=== PATIENT | female | born 1985 | race Caucasian/White ===

== ENCOUNTER 2016-12-22 18:00 | Emergency (ER) | payer OTHER ==
[2016-12-22 18:18] LABS: PH,URINE 5.5 (4.5-8); URINE APPEARANCE Clear; URINE BILIRUBIN Negative (NEGATIVE); URINE BLOOD Negative (NEGATIVE); URINE GLUCOSE (UA) Negative (NEGATIVE); URINE KETONE Negative (NEGATIVE); URINE LEUK ESTERASE Negative (NEGATIVE); URINE NITRITE Negative (NEGATIVE); URINE PROTEIN Negative (NEGATIVE); URINE UROBILINOGEN 0.2 E.U/dl (0.2-1.0)
[2016-12-22 18:21] LABS: URINE COLOR YELLOW
[2016-12-22 18:22] VITALS: BP 117/74; PULSE 101; TEMP 99.6; BMI 20.5
--- NOTE | 2016-12-22 18:37 | PDOC ---
History of Present Illness - General History Source: Patient Exam Limitations: No Limitations <Rubén Singh - Last Filed: 12/22/16 18:38> - History of Present Illness Initial Comments: 12/22/16 18:51 Patient is a 31 year old female with no significant medical hx who is presenting to the ED for flu-like symptoms and cough for five days. Patient complains of fever, chills, sore throat, and productive cough. Today the patient measured her temperature at 102. The patient came to the ED today for having frequent cough with associated chest pain. She reports coughing up clear sputum. The patient denies nausea, vomiting, diarrhea, and difficulty with urination. NKDA. <Jo-Ann Bell - Last Filed: 12/22/16 18:56> - General Chief Complaint: Respiratory Stated Complaint: COUGH, SORE THROAT Time Seen by Provider: 12/22/16 18:22 Past History - Past Medical History Psychiatric Problems: Yes (DEPRESSION, ANXIETY, INSOMNIOA) - Psycho/Social/Smoking Cessation Hx Anxiety: Yes Suicidal Ideation: No Smoking History: Current some day smoker Have you smoked in the past 12 months: Yes Number of Cigarettes Smoked Daily: 5 Information on smoking cessation initiated: Yes 'Breaking Loose' booklet given: 12/22/16 Hx Alcohol Use: Yes (occasional) Drug/Substance Use Hx: No Substance Use Type: None <Rubén Singh - Last Filed: 12/22/16 18:38> <Jo-Ann Bell - Last Filed: 12/22/16 18:56> - Past Medical History Allergies/Adverse Reactions: Allergies Allergy/AdvReac Type Severity Reaction Status Date / Time No Known Allergies Allergy Verified 12/22/16 18:06 Home Medications: Ambulatory Orders Albuterol Sulfate Inhaler - [Ventolin HFA Inhaler -] 1 - 2 inh PO Q4H PRN #1 inhaler 12/22/16 Alprazolam 1 mg PO ASDIR PRN 12/22/16 Azithromycin 250 mg PO DAILY #6 tablet 12/22/16 Clonazepam [Klonopin] 1 mg PO ASDIR PRN 12/22/16 Ibuprofen [Motrin -] 400 mg PO ASDIR PRN 12/22/16 Norethindrone-E.estradiol-Iron [Microgestin Fe 1-20 Tablet] 1 each PO ASDIR Review of Systems - Review of Systems Comments:: 12/22/16 18:53 GENERAL/CONSTITUTIONAL: Fever and chills. No weakness. HEAD, EYES, EARS, NOSE AND THROAT: Sore throat. No change in vision. No ear pain or discharge. CARDIOVASCULAR: Chest pain associated with cough. No shortness of breath. RESPIRATORY: Productive cough. No wheezing or hemoptysis. GASTROINTESTINAL: No nausea, vomiting, diarrhea or constipation. GENITOURINARY: No dysuria, frequency, or change in urination. MUSCULOSKELETAL: No joint or muscle swelling or pain. No neck or back pain. SKIN: No rash NEUROLOGIC: No headache, vertigo, loss of consciousness, or change in strength/ sensation. <Jo-Ann Bell - Last Filed: 12/22/16 18:56> *Physical Exam - Vital Signs Last Vital Signs Temp Pulse Resp BP Pulse Ox 99.6 F 101 H 18 117/74 98 12/22/16 18:00 12/22/16 18:00 12/22/16 18:00 12/22/16 18:00 12/22/16 18:00 <Rubén Singh - Last Filed: 12/22/16 18:38> - Vital Signs Last Vital Signs Temp Pulse Resp BP Pulse Ox 99.6 F 101 H 18 117/74 98 12/22/16 18:00 12/22/16 18:00 12/22/16 18:00 12/22/16 18:00 12/22/16 18:00 - Physical Exam Comments: 12/22/16 18:55 GENERAL: Awake, alert, and fully oriented, in no acute distress HEAD: No signs of trauma EYES: PERRLA, EOMI, sclera anicteric, conjunctiva clear ENT: Auricles normal inspection, hearing grossly normal, nares patent, oropharynx clear without exudates. Moist mucosa NECK: Normal ROM, supple, no lymphadenopathy, JVD, or masses LUNGS: Coughing sporadically throughout. Breath sounds equal, clear to auscultation bilaterally. No wheezes, and no crackles HEART: Regular rate and rhythm, normal S1 and S2, no murmurs, rubs or gallops ABDOMEN: Soft, nontender, normoactive bowel sounds. No guarding, no rebound. No masses EXTREMITIES: Normal range of motion, no edema. No clubbing or cyanosis. No cords, erythema, or tenderness NEUROLOGICAL: Cranial nerves II through XII grossly intact. Normal speech, normal gait SKIN: Warm, Dry, normal turgor, no rashes or lesions noted. ENDOCRINE: No increased thirst. No abnormal weight change. HEMATOLOGIC/LYMPHATIC: No anemia, easy bleeding, or history of blood clots. ALLERGIC/IMMUNOLOGIC: No hives or skin allergy. <Jo-Ann Bell - Last Filed: 12/22/16 18:56> ED Treatment Course - ADDITIONAL ORDERS Additional order review: Laboratory Results 12/22/16 18:10 Urine Color Yellow Urine Appearance Clear Urine pH 5.5 Ur Specific [place] <= 1.005 Urine Protein Negative Urine Glucose (UA) Negative Urine Ketones Negative Urine Blood Negative Urine Nitrite Negative Urine Bilirubin Negative Urine Urobilinogen 0.2 e.u/dl Ur Leukocyte Esterase Negative Urine HCG, Qual Negative <Rubén Singh - Last Filed: 12/22/16 18:38> - ADDITIONAL ORDERS Additional order review: Laboratory Results 12/22/16 18:10 Urine Color Yellow Urine Appearance Clear Urine pH 5.5 Ur Specific [place] <= 1.005 Urine Protein Negative Urine Glucose (UA) Negative Urine Ketones Negative Urine Blood Negative Urine Nitrite Negative Urine Bilirubin Negative Urine Urobilinogen 0.2 e.u/dl Ur Leukocyte Esterase Negative Urine HCG, Qual Negative <Jo-Ann Bell - Last Filed: 12/22/16 18:56> Medical Decision Making - Medical Decision Making 12/22/16 18:38 A portion of this note was documented by scribe services under my direction. I have reviewed the details of the note, within reason, and agree with the documentation with the following case summary and management plan written by me. Patient treated in the ED. Nursing notes are reviewed and incorporated into the medical decision-making. Vital signs reviewed. Peripheral IV access obtained by the nurse, laboratory studies are drawn and sent, reviewed and interpreted by myself. Vital Signs Temp Pulse Resp BP Pulse Ox 99.6 F 101 H 18 117/74 98 12/22/16 18:00 12/22/16 18:00 12/22/16 18:00 12/22/16 18:00 12/22/16 18:00 31-year-old female with past medical history of depression and anxiety presents to the emergency department for body aches, fevers up to 101, body aches, clearish productive sputum and throat irritation for 5 days. Reports sick contacts with her significant other as well as her significant other's father. Reports some chest discomfort with coughing. I suspect that the patient likely has viral syndrome. However, given the persistent cough and fevers, patient is likely developing bronchitis. I struck the patient to continue to observe herself or next 48 hours. If she has worsening symptoms, she should initiate azithromycin for bronchitis. Patient verbalizes understanding agrees with plan. I discussed the physical exam findings, ancillary test results and final diagnoses with the patient. I answered all of the patient's questions. The patient was satisfied with the care received and felt comfortable with the discharge plan and treatment plan. The patient will call their primary care physician within 24 hours to arrange follow-up and will return to the Emergency Department with any new, persistant or worsening symptoms. <Rubén Singh - Last Filed: 12/22/16 18:38> *DC/Admit/Observation/Transfer - Discharge Dispostion Admit: No <Rubén Singh - Last Filed: 12/22/16 18:38> - Attestations Scribe Attestion: 12/22/16 18:56 Documentation prepared by Jo-Ann Bell, acting as medical territory manager for Rubén Singh MD. <Jo-Ann Bell - Last Filed: 12/22/16 18:56> Diagnosis at time of Disposition: Bronchitis - Discharge Dispostion Disposition: HOME Condition at time of disposition: Stable - Prescriptions Prescriptions: Azithromycin 250 mg PO DAILY #6 tablet Albuterol Sulfate Inhaler - [Ventolin HFA Inhaler -] 1 - 2 inh PO Q4H PRN #1 inhaler PRN Reason: Coughing - Patient Instructions Printed Discharge Instructions: DI for Acute Bronchitis Additional Instructions: Please wait and see how you feel in 48 hours. If you notice that the symptoms are worsening or persistent, please start taking the azithromycin. You may use 2 puffs of albuterol every 4 hours as needed for wheezing or coughing. If you are taking the antibiotics, it will take several days before you get better. Drink plenty of fluids and rest.
== END 2016-12-22 18:50 | disposition home or self-care (01) ==
LOC: FER 18:00
DX: J40 Bronchitis, not specified as acute or chronic (principal); F17.210 Nicotine dependence, cigarettes, uncomplicated; F41.8 Other specified anxiety disorders
CPT/HCPCS: 81003; 84703; 99283-25